=== PATIENT | male | born 1960 | race Caucasian/White ===

== ENCOUNTER 2020-12-07 14:53 | Emergency (ER) | payer OTHER ==
[~2020-12-07] VITALS: Ht 188 cm; Wt 95.3 kg
[~2020-12-07 14:53] MED LIST: AMARYL2 MG PO; AUGMENTIN 875875 M1 PO; CIPRO250 M1 PO; ENOXAPARIN100 MG/1 M SUBQ; FLAGYL500 MG PO; FUROSEMIDE 20 M20 M1 PO; JANTOVEN5 MG PO; K-DUR 20 MEQ T20 MEQ PO; TRAMADOL 50 MG50 MG PO
[2020-12-07 16:25] VITALS: BP 125/67
== END 2020-12-07 16:26 | disposition home or self-care (01) ==
LOC: M.ERS 14:53
DX: S91.001A Unspecified open wound, right ankle, initial encounter (principal); I10 Essential (primary) hypertension; E11.9 Type 2 diabetes mellitus without complications; Z86.711 Personal history of pulmonary embolism

== ENCOUNTER 2021-01-13 19:35 | Emergency (ER) | payer OTHER ==
[~2021-01-13] VITALS: Ht 188 cm; Wt 95.3 kg
[2021-01-13] MEDS ORDERED: FORTAMET500 MG PO (19:42)
[2021-01-13 20:08] LABS: ABSOLUTE BASOPHILS 0.1 thou/uL (0.0-0.2); ABSOLUTE EOSINOPHILS 0.1 thou/uL (0.0-0.7); ABSOLUTE MONOCYTES 0.6 thou/uL (0.0-1.2); ABSOLUTE NEUTROPHILS 4.4 thou/uL (1.6-8.1); BASOPHILS 0.8 %; EOSINOPHILS 1.2 %; HEMATOCRIT 37.3 % (42.0-52.0); HEMOGLOBIN 12.8 gm/dL (14.0-18.0); LYMPHOCYTES 37.2 %; MCH 34.4 pg (26.0-34.0); MCHC 34.2 g/dL (28.0-37.0); MCV 100.6 fL (80.0-100.0); MONOCYTES 6.8 %; MPV 7.4 fl. (7.2-11.1); NUCLEATED RBCS 0 /100WBC; PLATELET COUNT* 194 thou/uL (150-400); RBC 3.71 mil/uL (4.50-6.00); RDW-CV 12.2 % (10.5-14.5); WBC 8.1 thou/uL (4.0-11.0)
[2021-01-13 20:17] LABS: CALCIUM 8.7 mg/dL (8.5-10.1); CREATININE 0.9 mg/dL (0.6-1.3); POTASSIUM 3.9 mmol/L (3.5-5.1)
[2021-01-13 20:21] LABS: ALBUMIN 3.2 g/dL (3.4-5.0); TOTAL BILIRUBIN 0.3 mg/dL (<0.1-1.0); TOTAL PROTEIN 6.6 g/dL (6.4-8.2)
[2021-01-13 22:03] VITALS: BP 105/46
== END 2021-01-13 22:04 | disposition home or self-care (01) ==
LOC: M.ERS 19:35
PROVIDERS: Personal Emergency Response Attendant
DX: I83.891 Varicose veins of right lower extremity with other complications (principal); R55 Syncope and collapse; R11.10 Vomiting, unspecified; I10 Essential (primary) hypertension; E11.9 Type 2 diabetes mellitus without complications; Z86.718 Personal history of other venous thrombosis and embolism; Z86.711 Personal history of pulmonary embolism; Z79.899 Other long term (current) drug therapy